=== PATIENT | female | born 1960 | race Caucasian/White ===

== ENCOUNTER 2018-10-27 10:22 | Day surgery (SDC) | payer BC ==
[~2018-10-27] VITALS: Ht 170.2 cm; Wt 66.0 kg
[2018-10-27] MEDS ORDERED: Hydrochlorothia25 MG (11:23)
[2018-10-27] MEDS ORDERED: ABAT250V (11:23)
[2018-10-27] MEDS ORDERED: LEVSOD50 (11:23)
[2018-10-27] MEDS ORDERED: PROGESTERONE100 MG (11:24)
== END 2018-10-27 12:55 | disposition home or self-care (01) ==
LOC: ORSCSDS 10:22
PROVIDERS: Internal Medicine Gastroenterology
PROC: 0DBK8ZX Excision of Ascending Colon, Via Natural or Artificial Opening Endoscopic, Diagnostic (ICD-10-PCS; principal; 2018-10-27 11:45)
PROC: 0DB68ZX Excision of Stomach, Via Natural or Artificial Opening Endoscopic, Diagnostic (ICD-10-PCS; principal; 2018-10-27 11:45)
PROC: 0DBM8ZX Excision of Descending Colon, Via Natural or Artificial Opening Endoscopic, Diagnostic (ICD-10-PCS; principal; 2018-10-27 11:45)
DX: Z12.11 Encounter for screening for malignant neoplasm of colon (principal); K63.5 Polyp of colon; D12.4 Benign neoplasm of descending colon; K64.8 Other hemorrhoids; Z80.0 Family history of malignant neoplasm of digestive organs; K63.89 Other specified diseases of intestine; Z79.899 Other long term (current) drug therapy
CPT/HCPCS: 88305; 88342; J2704; J7120

== ENCOUNTER → 2019-11-05 | Outpatient (CLI) | payer BC ==
[~2019-11-05] MED LIST: ABAT250V; Hydrochlorothia25 MG; LEVSOD50; PROGESTERONE100 MG
== END | disposition home or self-care (01) ==
LOC: PLD 08:15 → LAB SHORT 08:15
DX: L81.4 Other melanin hyperpigmentation (principal)
CPT/HCPCS: 88305; 88342

== ENCOUNTER 2024-03-08 08:04 | Day surgery (SDC) | payer BC ==
[~2024-03-08] VITALS: Ht 167.6 cm; Wt 71.1 kg
[~2024-03-08 08:04] MED LIST changes: +ACET325 PO; +ALEVE220 MG PO; -Hydrochlorothia25 MG; +Hydrochlorothia25 MG PO; +LEVOTHYROXINE50 MC9 PO; +Lactated Ringer's 1,000 ML IV ONE; +propofoL 40 ML IV ONE
[2024-03-08] MEDS ORDERED: ACYC200 (08:42)
[2024-03-08] MEDS ORDERED: Lactated Ringer's 1,000 ML IV ONE (09:10)
[2024-03-08 10:32] VITALS: BP 118/74
== END 2024-03-08 10:28 | disposition home or self-care (01) ==
LOC: ORSCSDS 08:04
PROVIDERS: Surgery
PROC: 0DJD8ZZ Inspection of Lower Intestinal Tract, Via Natural or Artificial Opening Endoscopic (ICD-10-PCS; principal; 2024-03-08 09:15)
DX: Z12.11 Encounter for screening for malignant neoplasm of colon (principal); Z86.0100 Personal history of colon polyps, unspecified; E03.9 Hypothyroidism, unspecified; E78.5 Hyperlipidemia, unspecified; Z79.899 Other long term (current) drug therapy
CPT/HCPCS: J2704; J7120